=== PATIENT | male | born 1980 | race Caucasian/White ===

== ENCOUNTER 2018-07-23 05:06 | Emergency (ER) | payer MEDICAID ==
--- NOTE | 2018-07-23 05:08 | ED Physician Chart ---
ED Chief Complaint/HPI - Patient Information Date Seen:: 07/23/18 Time Seen:: 05:30 Chief Complaint:: loss of hearing right ear History of Present Illness:: Patient was seen 2 days ago by his newly assigned private physician query during the physical examination noted waxing the patient's right ear and prescribed a wax remover which the patient has been using. 2 hours ago patient in the shower noted sudden hearing loss in the right ear. Allergies:: Allergies Allergy/AdvReac Type Severity Reaction Status Date / Time No Known Allergies Allergy Verified 07/23/18 05:14 Vitals:: Vital Signs - 8 hr 07/23/18 05:11 Temp 97.5 F HR 76 RR 17 BP 117/81 O2 Sat % 95 Historian:: Patient Review:: Nurse's Note Reviewed ED Review of Systems - Review of Systems General/Constitutional: No fever, No chills, No weight loss, No weakness, No diaphoresis, No edema, No loss of appetite Skin: No skin lesions, No rash, No bruising Head: No headache, No light-headedness Eyes: No loss of vision, No pain, No diplopia ENT: No nasal drainage, No sore throat, No tinnitus, Other (loss of hearing right ear) Neck: No neck pain, No swelling, No thyromegaly, No stiffness, No mass noted Cardio Vascular: No chest pain, No palpitations, No PND, No orthopnea, No edema Pulmonary: No SOB, No cough, No sputum, No wheezing GI: No nausea, No vomiting, No diarrhea, No pain, No melena, No hematochezia, No constipation, No hematemesis G/U: No dysuria, No frequency, No hematuria Musculoskeletal: No bone or joint pain, No back pain, No muscle pain Endocrine: No polyuria, No polydipsia Psychiatric: No prior psych history, No depression, No anxiety, No suicidal ideation Hematopoietic: No bruising, No lymphadenopathy Allergic/Immuno: No urticaria, No angioedema Neurological: No syncope, No focal symptoms, No weakness, No paresthesia, No headache, No seizure, No dizziness, No confusion, No vertigo ED Past Medical History - Past Medical History Past Medical History: No significant medical hx Family History: None Social History: Non Smoker, No Alcohol Surgical History: None Psychiatricy History: None Medication: None Family Medical History - Family Member Mother History Unknown: Yes ED Physical Exam - Physical Examination General/Constitutional: Awake, Well-developed, well-nourished, Alert, No distress, GCS 15, Non-toxic appearing, Ambulatory Head: Atraumatic Eyes: Lids, conjuctiva normal, PERRL, EOMI Skin: Nl inspection ENMT: External ears, nose nl Other ENMT comments:: very pale yellow cerumen right external auditory canal; left tympanic membrane clear Neck: No nuchal rigidity Respiratory: Nl effort/Exclusion, Clear to Auscultation, No Wheeze/Rhonchi/Rales Cardio Vascular: RRR, No murmur, gallop, rubs GI: No tenderness/rebounding/guarding, No organomegaly, No hernia Extremities: Normal digits & nails Neuro/Psych: No focal deficits ED Assessment - Procedures Procedures:: Right external auditory canal irrigated with half peroxide half water; many small pieces of pale yellow cerumen came out with the first; right tympanic membrane noted be clear after irrigation ED Septic Shock - . Is Septic Shock (SBP<90, OR Lactate>4 mmol\L) present?: No - <6hrs of presentation: Vital Signs: Vital Signs - 8 hr 07/23/18 05:11 Temp 97.5 F HR 76 RR 17 BP 117/81 O2 Sat % 95 ED Reassessment (Disposition) - Reassessment Reassessment Condition:: Improved - Diagnosis Diagnosis:: Ceruminosis right external auditory canal - Aftercare/Follow up Instructions Aftercare/Follow-Up Instructions:: Refer to Discharge Instructions - Patient Disposition Discharge/Transfer:: Home Condition at Disposition:: Stable, Improved
== END 2018-07-23 05:54 | disposition home or self-care (01) ==
LOC: ER 05:06
DX: H61.21 Impacted cerumen, right ear (principal)